=== PATIENT | male | born 1940 | race Caucasian/White ===

== ENCOUNTER 2017-10-20 15:38 | Inpatient (IN) ==
[2017-10-20] MEDS ORDERED: AMIODARONE INJ 150 MG in DEXTROSE 5% 100 ML IV ONE (16:35)
[2017-10-20] MEDS ORDERED: ENOXAPARIN 80 MG/0.8 ML SYRINGE SUBCUT STA (16:56)
[2017-10-20 17:20] LABS: Basophils % 0.5 % (0.0-0.8); Eosinophils # 0.4 10*3/uL (0.0-0.87); Eosinophils % 9.8 % (0.00-10.9); Hematocrit 38.5 VOL% (42.0-52.0); Hemoglobin 13.1 GM/DL (14.0-18.0); Lymphocytes # 3.1 10*3/uL (1.4-4.0); Lymphocytes % 81.7 % (21.2-54.2); Mean Corpuscular Hemoglobin 33 PG (27-34); Mean Corpuscular Volume 97.2 FL (87-102); Mean Platelet Volume 12.2 FL (9.6-12.0); Monocytes # 0.2 10*3/uL (0.11-0.8); Monocytes % 4.5 % (1.7-12.7); Neutrophils # 0.1 10*3/uL (1.4-7.4); Neutrophils % 3.5 % (38.7-73.9); Platelet Count 184 T/CUMM (130-400); Red Blood Count 3.96 MC/CUMM (3.8-5.5); Red Cell Distribution Width 13.5 % (9.3-17.3); White Blood Count 3.8 T/CUMM (4-12)
[2017-10-20 17:28] LABS: Partial Thromboplastin Time 25.7 SECS (0-40)
[2017-10-20 17:33] LABS: Alanine Aminotransferase 21 U/L (16-61); Albumin 3.3 G/DL (3.4-5.0); Alkaline Phosphatase 68 U/L (45-117); Aspartate Amino Transferase 19 U/L (0-37); Blood Urea Nitrogen 10 MG/DL (7-18); Calcium 8.8 MG/DL (8.5-10.1); Glucose 144 MG/DL (74-106); Osmolality,Calculated 276.7 MOS/KG (273-304); Potassium 3.5 MMOL/L (3.5-5.1); Sodium 138 MMOL/L (136-145); Total Protein 6.8 G/DL (6.4-8.3)
[2017-10-20 17:34] LABS: Troponin I Only 0.107 NG/ML (0.00-0.045)
[2017-10-20] MEDS ORDERED: AMIODARONE INJ 450 MG in DEXTROSE 5% 241 ML IV SCH ×2 (18:00→18:14)
[2017-10-20] MEDS ORDERED: GLUCAGON 1 MG VIAL IM PRN (18:14)
[2017-10-20] MEDS ORDERED: DEXTROSE 50% 25 GM/50 ML VIAL IV PRN (18:14)
[2017-10-20] MEDS ORDERED: MAGNESIUM SULF RIDER 4 GM in PREMIX 1 EACH IV PRN (18:14)
[2017-10-20] MEDS ORDERED: MAGNESIUM SULF RIDER 2 GM in PREMIX 1 EACH IV PRN (18:14)
[2017-10-20] MEDS ORDERED: ONDANSETRON 4 MG/2 ML VIAL IV PRN (18:14)
[2017-10-20 18:17] LABS: Lymphocytes 91 % (20-55); Platelet Estimate Normal; Segmented Neutrophils 6 % (50-85); Total Cells Counted 100
[2017-10-20] MEDS ORDERED: NITROGLYCERIN DRIP 50 MG/250 ML BOTTLE IV PRN (19:20)
[2017-10-20] MEDS ORDERED: FUROSEMIDE 40 MG/4 ML VIAL ONE (19:24)
[2017-10-20 19:59] LABS: Troponin I Only 0.104 NG/ML (0.00-0.045)
[2017-10-20] MEDS: MORPHINE 4 MG/1 ML VIAL IV PRN (20:03)
[2017-10-20 20:16] LABS: ABG Base Excess -12.7 MMOL/L (-2.5-2.5); ABG HCO3 16.6 MMOL/L (20-26); ABG Oxygen Saturation 94.6 % (95-100); ABG PCO2 51.3 MM HG (35-48); ABG PO2 101.3 MM HG (80-95); ABG TCO2 18.1 MMOL/L (23-27); Allen Test Positive; Pt O2 Delivery Device Other
[2017-10-20 20:20] LABS: ABG PH 7.127 (7.35-7.45)
[2017-10-20] MEDS ORDERED: SODIUM BICARBONATE 50 MEQ/50 ML SYRINGE IV ONE ×2 (20:22)
[2017-10-20] MEDS ORDERED: FUROSEMIDE 40 MG/4 ML VIAL IV SCH (21:30)
[2017-10-20 22:08] LABS: Troponin I Only 0.113 NG/ML (0.00-0.045)
[2017-10-20 23:15] LABS: Apearance,Urine CLOUDY (Clear); Bacteria,Urine Few /HPF (Few); Bilirubin,Urine Negative (Negative); Blood, Urine Large mg/dL (Negative); Glucose,Urine (UA) 50 mg/dL (Negative); Hyaline Casts,Urine 47 /LPF (0-3); Ketones,Urine Negative (Negative); Mucus,Urine Moderate /LPF (Occasional); Nitrite,Urine Negative (Negative); Protein,Urine 30 MG/DL; RBC,Urine 522 /HPF (0-4); Sperm,Urine Many /HPF (Negative); Urine Color Yellow (Yellow); Urine Specific Gravity 1.011 (1.001-1.035); Urine Urobilinogen < 2.0 EU/DL (0.2-1.0); WBC,Urine 11 /HPF (0-6)
[2017-10-20] MEDS ORDERED: NOREPINEPHRINE 8 MG in SODIUM CHLORIDE 0.9% 242 ML IV PRN (23:25)
[2017-10-20] MEDS ORDERED: NOREPINEPHRINE 4 MG/4 ML VIAL IV ONE (23:29)
[2017-10-20] MEDS: ALBUTEROL/IPRATROPIUM 3 ML NEB RESP TX SCH (23:57)
[2017-10-21 00:54] LABS: Troponin I Only 0.106 NG/ML (0.00-0.045)
[2017-10-21] MEDS: MORPHINE 4 MG/1 ML VIAL IV PRN (01:25)
[2017-10-21] MEDS: ALBUTEROL/IPRATROPIUM 3 ML NEB RESP TX SCH ×4 (03:04→20:27)
[2017-10-21 03:14] LABS: ABG Base Excess 4.4 MMOL/L (-2.5-2.5); ABG HCO3 28.3 MMOL/L (20-26); ABG PCO2 44.4 MM HG (35-48); ABG PH 7.428 (7.35-7.45); ABG PO2 76.6 MM HG (80-95); Allen Test Positive; Pt O2 Delivery Device BIPAP
[2017-10-21 03:21] LABS: Basophils % 0.3 % (0.0-0.8); Eosinophils % 0.2 % (0.00-10.9); Hemoglobin 11.6 GM/DL (14.0-18.0); Immature Granulocytes % 0.5 %; Immature Granulocytes Absolute 0.05 #; Lymphocytes # 1.8 10*3/uL (1.4-4.0); Lymphocytes % 17.4 % (21.2-54.2); Mean Corpuscular HGB Conc 34.1 GM/DL (32-36); Mean Corpuscular Hemoglobin 33 PG (27-34); Mean Corpuscular Volume 95.8 FL (87-102); Monocytes # 1.1 10*3/uL (0.11-0.8); Monocytes % 10.7 % (1.7-12.7); Neutrophils # 7.3 10*3/uL (1.4-7.4); Neutrophils % 70.9 % (38.7-73.9); Platelet Count 199 T/CUMM (130-400); Red Blood Count 3.55 MC/CUMM (3.8-5.5); Red Cell Distribution Width 13.4 % (9.3-17.3); White Blood Count 10.2 T/CUMM (4-12)
[2017-10-21 03:37] LABS: INR 1.1; PT Patient Result 11.2 SECS; Partial Thromboplastin Time 28.9 SECS (0-40)
[2017-10-21 03:47] LABS: Calcium 8.5 MG/DL (8.5-10.1); Osmolality,Calculated 281.4 MOS/KG (273-304); Potassium 3.7 MMOL/L (3.5-5.1)
[2017-10-21] MEDS: AMIODARONE INJ 450 MG in DEXTROSE 5% 241 ML IV SCH ×3 (04:27→23:10)
[2017-10-21] MEDS: FUROSEMIDE 40 MG/4 ML VIAL IV SCH ×4 (06:20→21:10)
[2017-10-21] MEDS: ENOXAPARIN 80 MG/0.8 ML SYRINGE SUBCUT SCH (06:24)
[2017-10-21] MEDS ORDERED: LORazepam 1 MG TABLET PO PRN (08:00)
[2017-10-21] MEDS ORDERED: ALBUTEROL 2.5 MG/3 ML NEB RESP TX PRN (08:00)
[2017-10-21] MEDS: metFORMIN 500 MG TABLET PO SCH ×2 (08:35→17:28)
[2017-10-21] MEDS ORDERED: LOSARTAN 25 MG TABLET PO SCH (09:00)
[2017-10-21] MEDS ORDERED: METOPROLOL TARTRATE 25 MG TABLET PO SCH (09:00)
[2017-10-21] MEDS ORDERED: PANTOPRAZOLE 40 MG TABLET PO SCH (09:00)
[2017-10-21] MEDS ORDERED: FUROSEMIDE 40 MG TABLET PO SCH (09:00)
[2017-10-21] MEDS: GLIMEPIRIDE 4 MG TABLET PO SCH (09:29)
[2017-10-21] MEDS: VENLAFAXINE 75 MG TABLET PO SCH (09:34)
[2017-10-21] MEDS: PANTOPRAZOLE 40 MG TABLET PO SCH (09:35)
[2017-10-21] MEDS: ASPIRIN EC 81 MG TABLET PO SCH (09:35)
[2017-10-21] MEDS: CLOPIDOGREL 75 MG TABLET PO SCH (09:35)
[2017-10-21] MEDS: ATORVASTATIN 40 MG TABLET PO SCH (09:35)
[2017-10-21] MEDS: CALCIUM (CARBONATE)/VITAMIN D 600 MG-400 UNIT TABLET PO SCH ×2 (09:35→21:10)
[2017-10-21] MEDS: DOBUTamine 500 MG/250 ML PREMIX IV PRN (10:29)
[2017-10-21] MEDS: INSULIN REGULAR 100 UNIT/ML SUBCUT SCH ×3 (11:53→21:10)
[2017-10-21] MEDS ORDERED: FUROSEMIDE 100 MG/10 ML VIAL ONE (21:01)
[2017-10-21] MEDS: MULTIVITAMIN (CENTRUM) TABLET PO SCH (21:11)
[2017-10-21] MEDS: ACETAMINOPHEN 325 MG TABLET PO PRN (21:11)
[2017-10-21] MEDS: ALPRAZolam 0.5 MG TABLET PO SCH (21:11)
[2017-10-21] MEDS: MIRTAZAPINE 15 MG TABLET PO SCH (21:11)
[2017-10-22] MEDS: DOBUTamine 500 MG/250 ML PREMIX IV PRN ×2 (00:01→12:56)
[2017-10-22] MEDS: ALBUTEROL/IPRATROPIUM 3 ML NEB RESP TX SCH ×8 (00:13→23:48)
[2017-10-22 05:29] LABS: Basophils % 0.5 % (0.0-0.8); Eosinophils # 0.1 10*3/uL (0.0-0.87); Eosinophils % 1.4 % (0.00-10.9); Hematocrit 32.2 VOL% (42.0-52.0); Hemoglobin 10.9 GM/DL (14.0-18.0); Immature Granulocytes % 0.2 %; Immature Granulocytes Absolute 0.02 #; Lymphocytes # 1.9 10*3/uL (1.4-4.0); Lymphocytes % 21.4 % (21.2-54.2); Mean Corpuscular HGB Conc 33.9 GM/DL (32-36); Mean Corpuscular Hemoglobin 33 PG (27-34); Mean Corpuscular Volume 96.1 FL (87-102); Mean Platelet Volume 12.6 FL (9.6-12.0); Monocytes % 11.7 % (1.7-12.7); Neutrophils # 5.6 10*3/uL (1.4-7.4); Neutrophils % 64.8 % (38.7-73.9); Platelet Count 146 T/CUMM (130-400); Red Blood Count 3.35 MC/CUMM (3.8-5.5); Red Cell Distribution Width 13.7 % (9.3-17.3); White Blood Count 8.7 T/CUMM (4-12)
[2017-10-22 05:56] LABS: Calcium 8.4 MG/DL (8.5-10.1); Osmolality,Calculated 284.1 MOS/KG (273-304)
[2017-10-22] MEDS ORDERED: FUROSEMIDE 100 MG/10 ML VIAL ONE (06:05)
[2017-10-22] MEDS: LEVOTHYROXINE 75 MCG TABLET PO SCH (06:09)
[2017-10-22] MEDS: FUROSEMIDE 40 MG/4 ML VIAL IV SCH ×3 (06:09→20:19)
[2017-10-22] MEDS: ENOXAPARIN 80 MG/0.8 ML SYRINGE SUBCUT SCH (06:09)
[2017-10-22] MEDS ORDERED: POTASSIUM CHLORIDE RIDER 20 MEQ in PREMIX 1 EACH IV PRN (07:36)
[2017-10-22] MEDS: INSULIN REGULAR 100 UNIT/ML SUBCUT SCH ×4 (09:21→20:49)
[2017-10-22] MEDS ORDERED: POTASSIUM CHLORIDE RIDER 10 MEQ in PREMIX 1 EACH IV PRN (09:39)
[2017-10-22] MEDS: metFORMIN 500 MG TABLET PO SCH ×2 (09:51→18:17)
[2017-10-22] MEDS: PANTOPRAZOLE 40 MG TABLET PO SCH (09:52)
[2017-10-22] MEDS: CLOPIDOGREL 75 MG TABLET PO SCH (09:52)
[2017-10-22] MEDS: CALCIUM (CARBONATE)/VITAMIN D 600 MG-400 UNIT TABLET PO SCH ×2 (09:52→20:19)
[2017-10-22] MEDS: ATORVASTATIN 40 MG TABLET PO SCH (09:52)
[2017-10-22] MEDS: SACUBITRIL/VALSARTAN 49-51 MG TABLET PO SCH ×2 (09:52→20:20)
[2017-10-22] MEDS: GLIMEPIRIDE 4 MG TABLET PO SCH (09:52)
[2017-10-22] MEDS: ASPIRIN EC 81 MG TABLET PO SCH (09:52)
[2017-10-22] MEDS: VENLAFAXINE 75 MG TABLET PO SCH (09:52)
[2017-10-22] MEDS: SPIRONOLACTONE 25 MG TABLET PO SCH (09:52)
[2017-10-22] MEDS: POTASSIUM CHLORIDE RIDER 20 MEQ in PREMIX 1 EACH IV PRN ×3 (10:19→21:29)
[2017-10-22] MEDS: METOPROLOL SUCCINATE XL 25 MG TABLET PO SCH (11:10)
[2017-10-22] MEDS: AMIODARONE INJ 450 MG in DEXTROSE 5% 241 ML IV SCH (13:56)
[2017-10-22] MEDS: ACETAMINOPHEN 325 MG TABLET PO PRN (14:51)
[2017-10-22] MEDS: AMIODARONE 200 MG TABLET PO SCH ×2 (16:36→20:19)
[2017-10-22] MEDS: ALPRAZolam 0.5 MG TABLET PO SCH (20:19)
[2017-10-22] MEDS: MULTIVITAMIN (CENTRUM) TABLET PO SCH (20:19)
[2017-10-22] MEDS: MIRTAZAPINE 15 MG TABLET PO SCH (20:21)
[2017-10-23] MEDS: DOBUTamine 500 MG/250 ML PREMIX IV PRN (02:09)
[2017-10-23] MEDS: ALBUTEROL/IPRATROPIUM 3 ML NEB RESP TX SCH ×6 (03:03→23:44)
[2017-10-23 05:12] LABS: Basophils % 0.5 % (0.0-0.8); Eosinophils # 0.2 10*3/uL (0.0-0.87); Eosinophils % 2.8 % (0.00-10.9); Hematocrit 31.8 VOL% (42.0-52.0); Hemoglobin 10.6 GM/DL (14.0-18.0); Immature Granulocytes Absolute 0.09 #; Lymphocytes # 1.9 10*3/uL (1.4-4.0); Lymphocytes % 22.5 % (21.2-54.2); Mean Corpuscular HGB Conc 33.3 GM/DL (32-36); Mean Corpuscular Hemoglobin 33 PG (27-34); Mean Corpuscular Volume 98.5 FL (87-102); Mean Platelet Volume 12.3 FL (9.6-12.0); Monocytes % 12.1 % (1.7-12.7); Neutrophils # 5.3 10*3/uL (1.4-7.4); Neutrophils % 61.1 % (38.7-73.9); Platelet Count 145 T/CUMM (130-400); Red Blood Count 3.23 MC/CUMM (3.8-5.5); Red Cell Distribution Width 13.9 % (9.3-17.3); White Blood Count 8.6 T/CUMM (4-12)
[2017-10-23 05:50] LABS: Calcium 8.7 MG/DL (8.5-10.1); Osmolality,Calculated 281.3 MOS/KG (273-304); Potassium 3.7 MMOL/L (3.5-5.1); Thyroid Stimulating Hormone 1.48 uIU/ml (0.358-3.74)
[2017-10-23] MEDS: LEVOTHYROXINE 75 MCG TABLET PO SCH (06:05)
[2017-10-23] MEDS: INSULIN REGULAR 100 UNIT/ML SUBCUT SCH ×4 (07:57→21:16)
[2017-10-23] MEDS: SACUBITRIL/VALSARTAN 49-51 MG TABLET PO SCH (08:04)
[2017-10-23] MEDS: FUROSEMIDE 40 MG/4 ML VIAL IV SCH (08:04)
[2017-10-23] MEDS: VENLAFAXINE 75 MG TABLET PO SCH (08:04)
[2017-10-23] MEDS: ATORVASTATIN 40 MG TABLET PO SCH (08:04)
[2017-10-23] MEDS: METOPROLOL SUCCINATE XL 25 MG TABLET PO SCH (08:04)
[2017-10-23] MEDS: AMIODARONE 200 MG TABLET PO SCH ×2 (08:05→21:10)
[2017-10-23] MEDS: CLOPIDOGREL 75 MG TABLET PO SCH (08:05)
[2017-10-23] MEDS: GLIMEPIRIDE 4 MG TABLET PO SCH (08:05)
[2017-10-23] MEDS: PANTOPRAZOLE 40 MG TABLET PO SCH (08:05)
[2017-10-23] MEDS: ASPIRIN EC 81 MG TABLET PO SCH (08:05)
[2017-10-23] MEDS: SPIRONOLACTONE 25 MG TABLET PO SCH (08:05)
[2017-10-23] MEDS: CALCIUM (CARBONATE)/VITAMIN D 600 MG-400 UNIT TABLET PO SCH ×2 (08:05→21:10)
[2017-10-23] MEDS: metFORMIN 500 MG TABLET PO SCH ×2 (08:05→17:12)
[2017-10-23] MEDS ORDERED: FUROSEMIDE 40 MG TABLET PO SCH (09:00)
[2017-10-23] MEDS: ENOXAPARIN 40 MG/0.4 ML SYRINGE SUBCUT SCH (10:18)
[2017-10-23] MEDS: MIRTAZAPINE 15 MG TABLET PO SCH (21:09)
[2017-10-23] MEDS: ALPRAZolam 0.5 MG TABLET PO SCH (21:10)
[2017-10-23] MEDS: MULTIVITAMIN (CENTRUM) TABLET PO SCH (21:10)
[2017-10-24] MEDS: ALBUTEROL/IPRATROPIUM 3 ML NEB RESP TX SCH ×5 (03:00→19:49)
[2017-10-24 05:31] LABS: Basophils % 0.4 % (0.0-0.8); Eosinophils # 0.2 10*3/uL (0.0-0.87); Eosinophils % 2.5 % (0.00-10.9); Hematocrit 33.4 VOL% (42.0-52.0); Hemoglobin 11.2 GM/DL (14.0-18.0); Immature Granulocytes % 0.4 %; Immature Granulocytes Absolute 0.04 #; Lymphocytes % 20.6 % (21.2-54.2); Mean Corpuscular HGB Conc 33.5 GM/DL (32-36); Mean Corpuscular Hemoglobin 33 PG (27-34); Mean Corpuscular Volume 96.8 FL (87-102); Mean Platelet Volume 12.1 FL (9.6-12.0); Monocytes % 10.2 % (1.7-12.7); Neutrophils # 6.2 10*3/uL (1.4-7.4); Neutrophils % 65.9 % (38.7-73.9); Platelet Count 155 T/CUMM (130-400); Red Blood Count 3.45 MC/CUMM (3.8-5.5); White Blood Count 9.5 T/CUMM (4-12)
[2017-10-24 06:00] LABS: Calcium 8.8 MG/DL (8.5-10.1); Osmolality,Calculated 277.5 MOS/KG (273-304)
[2017-10-24] MEDS: INSULIN REGULAR 100 UNIT/ML SUBCUT SCH ×4 (07:57→21:09)
[2017-10-24] MEDS: LEVOTHYROXINE 75 MCG TABLET PO SCH (07:58)
[2017-10-24] MEDS: ATORVASTATIN 40 MG TABLET PO SCH (08:52)
[2017-10-24] MEDS: SPIRONOLACTONE 25 MG TABLET PO SCH (08:52)
[2017-10-24] MEDS: CARVEDILOL 3.125 MG TABLET PO SCH ×2 (08:52→20:39)
[2017-10-24] MEDS: ENOXAPARIN 40 MG/0.4 ML SYRINGE SUBCUT SCH (08:52)
[2017-10-24] MEDS: SACUBITRIL/VALSARTAN 49-51 MG TABLET PO SCH ×2 (08:53→20:39)
[2017-10-24] MEDS: GLIMEPIRIDE 4 MG TABLET PO SCH (08:53)
[2017-10-24] MEDS: metFORMIN 500 MG TABLET PO SCH ×2 (08:53→18:14)
[2017-10-24] MEDS: VENLAFAXINE 75 MG TABLET PO SCH (08:53)
[2017-10-24] MEDS: ASPIRIN EC 81 MG TABLET PO SCH (08:53)
[2017-10-24] MEDS: CLOPIDOGREL 75 MG TABLET PO SCH (08:54)
[2017-10-24] MEDS: PANTOPRAZOLE 40 MG TABLET PO SCH (08:54)
[2017-10-24] MEDS: AMIODARONE 200 MG TABLET PO SCH ×2 (08:54→20:41)
[2017-10-24] MEDS: CALCIUM (CARBONATE)/VITAMIN D 600 MG-400 UNIT TABLET PO SCH ×2 (08:54→20:40)
[2017-10-24] MEDS ORDERED: FUROSEMIDE 40 MG TABLET PO SCH (09:00)
[2017-10-24] MEDS: FUROSEMIDE 40 MG TABLET PO SCH (16:34)
[2017-10-24] MEDS: MULTIVITAMIN (CENTRUM) TABLET PO SCH (20:40)
[2017-10-24] MEDS: MIRTAZAPINE 15 MG TABLET PO SCH (20:41)
[2017-10-24] MEDS: ALPRAZolam 0.5 MG TABLET PO SCH (20:42)
[2017-10-25] MEDS: ALBUTEROL/IPRATROPIUM 3 ML NEB RESP TX SCH ×7 (03:53→23:27)
[2017-10-25 05:44] LABS: Basophils % 0.3 % (0.0-0.8); Eosinophils # 0.2 10*3/uL (0.0-0.87); Immature Granulocytes % 0.4 %; Immature Granulocytes Absolute 0.05 #; Lymphocytes # 1.7 10*3/uL (1.4-4.0); Lymphocytes % 15.3 % (21.2-54.2); Mean Corpuscular HGB Conc 33.3 GM/DL (32-36); Mean Corpuscular Hemoglobin 33 PG (27-34); Mean Corpuscular Volume 97.7 FL (87-102); Monocytes # 1.2 10*3/uL (0.11-0.8); Monocytes % 10.6 % (1.7-12.7); Neutrophils % 71.4 % (38.7-73.9); Platelet Count 194 T/CUMM (130-400); Red Blood Count 3.99 MC/CUMM (3.8-5.5); Red Cell Distribution Width 13.7 % (9.3-17.3); White Blood Count 11.2 T/CUMM (4-12)
[2017-10-25 06:12] LABS: Calcium 9.3 MG/DL (8.5-10.1); Osmolality,Calculated 272.8 MOS/KG (273-304); Potassium 4.5 MMOL/L (3.5-5.1)
[2017-10-25 06:14] LABS: Hypochromasia 1+
[2017-10-25 06:15] LABS: Microcytosis 1+; Platelet Estimate Adequate
[2017-10-25] MEDS: LEVOTHYROXINE 75 MCG TABLET PO SCH (07:09)
[2017-10-25] MEDS: INSULIN REGULAR 100 UNIT/ML SUBCUT SCH ×4 (10:36→20:36)
[2017-10-25] MEDS: metFORMIN 500 MG TABLET PO SCH ×2 (10:42→16:39)
[2017-10-25] MEDS: FUROSEMIDE 40 MG TABLET PO SCH ×2 (10:42→16:37)
[2017-10-25] MEDS: SPIRONOLACTONE 25 MG TABLET PO SCH (10:43)
[2017-10-25] MEDS: CALCIUM (CARBONATE)/VITAMIN D 600 MG-400 UNIT TABLET PO SCH ×2 (10:43→21:05)
[2017-10-25] MEDS: GLIMEPIRIDE 4 MG TABLET PO SCH (10:43)
[2017-10-25] MEDS: ASPIRIN EC 81 MG TABLET PO SCH (10:43)
[2017-10-25] MEDS: SACUBITRIL/VALSARTAN 49-51 MG TABLET PO SCH ×2 (10:44→21:05)
[2017-10-25] MEDS: ATORVASTATIN 40 MG TABLET PO SCH (10:44)
[2017-10-25] MEDS: VENLAFAXINE 75 MG TABLET PO SCH (10:44)
[2017-10-25] MEDS: CARVEDILOL 3.125 MG TABLET PO SCH ×2 (10:44→21:05)
[2017-10-25] MEDS: AMIODARONE 200 MG TABLET PO SCH ×2 (10:44→21:05)
[2017-10-25] MEDS: MEMANTINE 5 MG TABLET PO SCH (10:45)
[2017-10-25] MEDS: ENOXAPARIN 40 MG/0.4 ML SYRINGE SUBCUT SCH (10:45)
[2017-10-25] MEDS: CLOPIDOGREL 75 MG TABLET PO SCH (10:45)
[2017-10-25] MEDS: PANTOPRAZOLE 40 MG TABLET PO SCH (10:45)
[2017-10-25] MEDS: MULTIVITAMIN (CENTRUM) TABLET PO SCH (21:05)
[2017-10-25] MEDS: ALPRAZolam 0.5 MG TABLET PO SCH (21:05)
[2017-10-25] MEDS: MIRTAZAPINE 15 MG TABLET PO SCH (21:06)
[2017-10-26] MEDS: ALBUTEROL/IPRATROPIUM 3 ML NEB RESP TX SCH ×2 (03:42→07:24)
[2017-10-26] MEDS: LEVOTHYROXINE 75 MCG TABLET PO SCH (06:29)
[2017-10-26 08:06] VITALS: BP 118/64
[2017-10-26] MEDS: INSULIN REGULAR 100 UNIT/ML SUBCUT SCH ×2 (08:10→11:51)
[2017-10-26] MEDS: ATORVASTATIN 40 MG TABLET PO SCH (09:11)
[2017-10-26] MEDS: CLOPIDOGREL 75 MG TABLET PO SCH (09:11)
[2017-10-26] MEDS: CARVEDILOL 3.125 MG TABLET PO SCH (09:11)
[2017-10-26] MEDS: VENLAFAXINE 75 MG TABLET PO SCH (09:11)
[2017-10-26] MEDS: MEMANTINE 5 MG TABLET PO SCH (09:11)
[2017-10-26] MEDS: CALCIUM (CARBONATE)/VITAMIN D 600 MG-400 UNIT TABLET PO SCH (09:11)
[2017-10-26] MEDS: ASPIRIN EC 81 MG TABLET PO SCH (09:11)
[2017-10-26] MEDS: PANTOPRAZOLE 40 MG TABLET PO SCH (09:11)
[2017-10-26] MEDS: FUROSEMIDE 40 MG TABLET PO SCH (09:12)
[2017-10-26] MEDS: metFORMIN 500 MG TABLET PO SCH (09:12)
[2017-10-26] MEDS: SPIRONOLACTONE 25 MG TABLET PO SCH (09:12)
[2017-10-26] MEDS: ENOXAPARIN 40 MG/0.4 ML SYRINGE SUBCUT SCH (09:12)
[2017-10-26] MEDS: SACUBITRIL/VALSARTAN 49-51 MG TABLET PO SCH (09:12)
[2017-10-26] MEDS: AMIODARONE 200 MG TABLET PO SCH (09:12)
[2017-10-26] MEDS: GLIMEPIRIDE 4 MG TABLET PO SCH (09:12)
== END 2017-10-26 11:55 | disposition swing bed (61) | DRG 291 ==
LOC: N.ED 15:38 → N.EDINP 17:09 → N.ICU 18:06 → N.TELES 10-24 22:16
PROVIDERS: ADMIT Internal Medicine Interventional Cardiology; ATTEND Internal Medicine Interventional Cardiology

== ENCOUNTER 2017-11-23 09:31 | Inpatient (IN) ==
[2017-11-23] MEDS ORDERED: ONDANSETRON 4 MG/2 ML VIAL IV PRN ×2 (10:57→15:18)
[2017-11-23] MEDS ORDERED: PANTOPRAZOLE 40 MG VIAL IV STA (10:57)
[2017-11-23] MEDS ORDERED: SODIUM CHLORIDE 0.9% 1,000 ML IV STA (10:57)
[2017-11-23 12:20] LABS: Basophils # 0.1 10*3/uL (0.0-0.2); Basophils % 0.8 % (0.0-0.8); Eosinophils # 0.1 10*3/uL (0.0-0.87); Eosinophils % 2.3 % (0.00-10.9); Hematocrit 35.5 VOL% (42.0-52.0); Hemoglobin 11.9 GM/DL (14.0-18.0); Immature Granulocytes % 0.3 %; Immature Granulocytes Absolute 0.02 #; Lymphocytes # 2.2 10*3/uL (1.4-4.0); Lymphocytes % 35.9 % (21.2-54.2); Mean Corpuscular HGB Conc 33.5 GM/DL (32-36); Mean Corpuscular Hemoglobin 32 PG (27-34); Mean Corpuscular Volume 95.9 FL (87-102); Mean Platelet Volume 12.3 FL (9.6-12.0); Monocytes # 0.7 10*3/uL (0.11-0.8); Monocytes % 10.9 % (1.7-12.7); Neutrophils % 49.8 % (38.7-73.9); Platelet Count 188 T/CUMM (130-400); Red Cell Distribution Width 14.6 % (9.3-17.3); White Blood Count 6.1 T/CUMM (4-12)
[2017-11-23 12:34] LABS: INR 1.1; PT Patient Result 11.1 SECS; Partial Thromboplastin Time 28.9 SECS (0-40)
[2017-11-23 12:37] LABS: Albumin 3.4 G/DL (3.4-5.0); Bilirubin,Total 0.4 MG/DL (0.2-1.0); Calcium 9.4 MG/DL (8.5-10.1); Osmolality,Calculated 279.7 MOS/KG (273-304); Potassium 4.3 MMOL/L (3.5-5.1); Total Protein 7.1 G/DL (6.4-8.3)
[2017-11-23] MEDS ORDERED: MORPHINE 4 MG/1 ML VIAL IV PRN (15:18)
[2017-11-23] MEDS ORDERED: ACETAMINOPHEN 325 MG TABLET PO PRN (15:18)
[2017-11-23] MEDS: SODIUM CHLORIDE 0.9% 1,000 ML IV SCH (17:12)
[2017-11-23 18:20] LABS: Hematocrit 33.9 VOL% (42.0-52.0); Hemoglobin 11.6 GM/DL (14.0-18.0)
[2017-11-23 22:34] LABS: Apearance,Urine CLEAR (Clear); Bilirubin,Urine Negative (Negative); Blood, Urine Negative (Negative); Glucose,Urine (UA) Negative (Negative); Ketones,Urine 5 mg/dL (Negative); Nitrite,Urine Negative (Negative); Protein,Urine Negative; RBC,Urine <1 /HPF (0-4); Urine Color Yellow (Yellow); Urine Specific Gravity 1.014 (1.001-1.035); Urine Urobilinogen < 2.0 EU/DL (0.2-1.0); WBC,Urine <1 /HPF (0-6)
[2017-11-23 23:23] LABS: Hematocrit 32.4 VOL% (42.0-52.0)
[2017-11-24] MEDS: SODIUM CHLORIDE 0.9% 1,000 ML IV SCH ×2 (02:10→10:34)
[2017-11-24 05:14] LABS: Basophils # 0.1 10*3/uL (0.0-0.2); Basophils % 0.8 % (0.0-0.8); Eosinophils # 0.2 10*3/uL (0.0-0.87); Eosinophils % 2.9 % (0.00-10.9); Hematocrit 34.4 VOL% (42.0-52.0); Hemoglobin 11.6 GM/DL (14.0-18.0); Immature Granulocytes % 0.3 %; Immature Granulocytes Absolute 0.02 #; Lymphocytes # 2.7 10*3/uL (1.4-4.0); Lymphocytes % 43.6 % (21.2-54.2); Mean Corpuscular HGB Conc 33.7 GM/DL (32-36); Mean Corpuscular Hemoglobin 32 PG (27-34); Mean Corpuscular Volume 93.7 FL (87-102); Mean Platelet Volume 12.8 FL (9.6-12.0); Monocytes # 0.7 10*3/uL (0.11-0.8); Monocytes % 11.8 % (1.7-12.7); Neutrophils # 2.5 10*3/uL (1.4-7.4); Neutrophils % 40.6 % (38.7-73.9); Platelet Count 179 T/CUMM (130-400); Red Blood Count 3.67 MC/CUMM (3.8-5.5); Red Cell Distribution Width 14.6 % (9.3-17.3); White Blood Count 6.2 T/CUMM (4-12)
[2017-11-24 05:23] LABS: Calcium 8.6 MG/DL (8.5-10.1); Osmolality,Calculated 285.1 MOS/KG (273-304); Potassium 4.4 MMOL/L (3.5-5.1)
[2017-11-24 07:34] LABS: Hematocrit 33.8 VOL% (42.0-52.0); Hemoglobin 11.4 GM/DL (14.0-18.0)
[2017-11-24] MEDS: PANTOPRAZOLE 40 MG VIAL IV SCH (09:23)
[2017-11-24] MEDS: ATORVASTATIN 40 MG TABLET PO SCH (10:30)
[2017-11-24] MEDS: CARVEDILOL 3.125 MG TABLET PO SCH ×2 (10:30→16:41)
[2017-11-24] MEDS: SACUBITRIL/VALSARTAN 49-51 MG TABLET PO SCH ×2 (10:30→20:45)
[2017-11-24] MEDS: FUROSEMIDE 40 MG TABLET PO SCH ×2 (10:30→16:41)
[2017-11-24] MEDS: SPIRONOLACTONE 25 MG TABLET PO SCH (10:30)
[2017-11-24] MEDS: AMIODARONE 200 MG TABLET PO SCH (10:30)
[2017-11-24] MEDS: MEMANTINE 5 MG TABLET PO SCH (10:30)
[2017-11-24] MEDS: MIRTAZAPINE 15 MG TABLET PO SCH (20:46)
[2017-11-25 04:34] LABS: Basophils % 0.5 % (0.0-0.8); Eosinophils # 0.2 10*3/uL (0.0-0.87); Eosinophils % 2.6 % (0.00-10.9); Hematocrit 32.6 VOL% (42.0-52.0); Hemoglobin 11.4 GM/DL (14.0-18.0); Immature Granulocytes % 0.2 %; Immature Granulocytes Absolute 0.01 #; Lymphocytes # 2.4 10*3/uL (1.4-4.0); Lymphocytes % 41.1 % (21.2-54.2); Mean Corpuscular Hemoglobin 32 PG (27-34); Mean Corpuscular Volume 91.8 FL (87-102); Mean Platelet Volume 12.7 FL (9.6-12.0); Monocytes # 0.6 10*3/uL (0.11-0.8); Neutrophils # 2.6 10*3/uL (1.4-7.4); Neutrophils % 44.6 % (38.7-73.9); Platelet Count 169 T/CUMM (130-400); Red Blood Count 3.55 MC/CUMM (3.8-5.5); Red Cell Distribution Width 14.6 % (9.3-17.3); White Blood Count 5.8 T/CUMM (4-12)
[2017-11-25 05:08] LABS: Calcium 8.4 MG/DL (8.5-10.1); Potassium 3.4 MMOL/L (3.5-5.1)
[2017-11-25] MEDS: LEVOTHYROXINE 75 MCG TABLET PO SCH (06:28)
[2017-11-25] MEDS: BISACODYL 5 MG TABLET PO SCH ×2 (06:28→16:28)
[2017-11-25] MEDS: POTASSIUM CHLORIDE 20 MEQ TABLET PO SCH ×3 (09:13→21:01)
[2017-11-25] MEDS: SACUBITRIL/VALSARTAN 49-51 MG TABLET PO SCH ×2 (09:13→21:01)
[2017-11-25] MEDS: SPIRONOLACTONE 25 MG TABLET PO SCH (09:13)
[2017-11-25] MEDS: CARVEDILOL 3.125 MG TABLET PO SCH ×2 (09:14→16:46)
[2017-11-25] MEDS: ATORVASTATIN 40 MG TABLET PO SCH (09:14)
[2017-11-25] MEDS: MEMANTINE 5 MG TABLET PO SCH (09:14)
[2017-11-25] MEDS: AMIODARONE 200 MG TABLET PO SCH (09:18)
[2017-11-25] MEDS: FUROSEMIDE 40 MG TABLET PO SCH ×2 (09:18→16:46)
[2017-11-25] MEDS: PANTOPRAZOLE 40 MG VIAL IV SCH (09:24)
[2017-11-25] MEDS ORDERED: POLYETHYLENE GLYCOL 3350/ELECTROLYTES 4,000 ML BOTTLE PO ONE (14:00)
[2017-11-25] MEDS ORDERED: POLYETHYLENE GLYCOL 3350/ELECTROLYTES 4,000 ML BOTTLE NG ONE (14:00)
[2017-11-25] MEDS ORDERED: MAGNESIUM CITRATE 300 ML BOTTLE PO ONE (21:00)
[2017-11-25] MEDS: MIRTAZAPINE 15 MG TABLET PO SCH (21:01)
[2017-11-26] MEDS: BISACODYL 5 MG TABLET PO SCH (03:22)
[2017-11-26 05:02] LABS: Basophils % 0.5 % (0.0-0.8); Eosinophils # 0.1 10*3/uL (0.0-0.87); Eosinophils % 1.7 % (0.00-10.9); Hematocrit 36.1 VOL% (42.0-52.0); Hemoglobin 12.3 GM/DL (14.0-18.0); Immature Granulocytes % 0.2 %; Immature Granulocytes Absolute 0.02 #; Lymphocytes # 3.1 10*3/uL (1.4-4.0); Lymphocytes % 37.2 % (21.2-54.2); Mean Corpuscular HGB Conc 34.1 GM/DL (32-36); Mean Corpuscular Hemoglobin 32 PG (27-34); Mean Platelet Volume 12.6 FL (9.6-12.0); Monocytes % 11.9 % (1.7-12.7); Neutrophils % 48.5 % (38.7-73.9); Platelet Count 196 T/CUMM (130-400); Red Blood Count 3.84 MC/CUMM (3.8-5.5); Red Cell Distribution Width 14.6 % (9.3-17.3); White Blood Count 8.3 T/CUMM (4-12)
[2017-11-26 05:33] LABS: Calcium 8.8 MG/DL (8.5-10.1)
[2017-11-26] MEDS: LEVOTHYROXINE 75 MCG TABLET PO SCH (06:47)
[2017-11-26] MEDS ORDERED: oxyCODONE/ACETAMINOPHEN 5-325 MG TABLET PO PRN (08:31)
[2017-11-26] MEDS ORDERED: LIDOCAINE 2% 5 ML VIAL ONE (09:00)
[2017-11-26] MEDS ORDERED: PROPOFOL 200 MG/20 ML VIAL IV ONE (09:00)
[2017-11-26] MEDS ORDERED: PHENYLEPHRINE 1 MG/10 ML SYRINGE IV ONE (09:00)
[2017-11-26] MEDS ORDERED: ETOMIDATE 20 MG/10 ML VIAL IV ONE (09:00)
[2017-11-26] MEDS: SACUBITRIL/VALSARTAN 49-51 MG TABLET PO SCH ×2 (09:47→21:13)
[2017-11-26] MEDS: MEMANTINE 5 MG TABLET PO SCH (09:47)
[2017-11-26] MEDS: FUROSEMIDE 40 MG TABLET PO SCH ×2 (09:48→16:00)
[2017-11-26] MEDS: ATORVASTATIN 40 MG TABLET PO SCH (09:48)
[2017-11-26] MEDS: SPIRONOLACTONE 25 MG TABLET PO SCH (09:48)
[2017-11-26] MEDS: CARVEDILOL 3.125 MG TABLET PO SCH ×2 (09:48→16:23)
[2017-11-26] MEDS: POLYETHYLENE GLYCOL POWDER 17 GM PACK PO SCH ×3 (09:48→21:13)
[2017-11-26] MEDS: AMIODARONE 200 MG TABLET PO SCH (09:48)
[2017-11-26] MEDS: PANTOPRAZOLE 40 MG VIAL IV SCH (09:48)
[2017-11-26] MEDS: DOCUSATE SODIUM 100 MG CAPSULE PO SCH ×2 (16:00→21:13)
[2017-11-26] MEDS: MIRTAZAPINE 15 MG TABLET PO SCH (21:13)
[2017-11-27 04:48] LABS: Basophils # 0.1 10*3/uL (0.0-0.2); Basophils % 0.6 % (0.0-0.8); Eosinophils # 0.2 10*3/uL (0.0-0.87); Eosinophils % 2.1 % (0.00-10.9); Hematocrit 34.6 VOL% (42.0-52.0); Hemoglobin 11.6 GM/DL (14.0-18.0); Immature Granulocytes % 0.4 %; Immature Granulocytes Absolute 0.03 #; Lymphocytes # 2.3 10*3/uL (1.4-4.0); Lymphocytes % 28.7 % (21.2-54.2); Mean Corpuscular HGB Conc 33.5 GM/DL (32-36); Mean Corpuscular Hemoglobin 32 PG (27-34); Mean Corpuscular Volume 96.1 FL (87-102); Mean Platelet Volume 12.3 FL (9.6-12.0); Monocytes # 0.7 10*3/uL (0.11-0.8); Neutrophils # 4.8 10*3/uL (1.4-7.4); Neutrophils % 59.2 % (38.7-73.9); Platelet Count 178 T/CUMM (130-400); Red Cell Distribution Width 14.6 % (9.3-17.3)
[2017-11-27] MEDS ORDERED: SODIUM CHLORIDE 0.9% 500 ML IV ONE (05:07)
[2017-11-27 05:14] LABS: Calcium 8.3 MG/DL (8.5-10.1); Osmolality,Calculated 283.1 MOS/KG (273-304); Potassium 3.6 MMOL/L (3.5-5.1)
[2017-11-27] MEDS: LEVOTHYROXINE 75 MCG TABLET PO SCH (06:07)
[2017-11-27 08:15] VITALS: BP 122/60
[2017-11-27] MEDS: SACUBITRIL/VALSARTAN 49-51 MG TABLET PO SCH (09:12)
[2017-11-27] MEDS: ATORVASTATIN 40 MG TABLET PO SCH (09:12)
[2017-11-27] MEDS: CARVEDILOL 3.125 MG TABLET PO SCH (09:12)
[2017-11-27] MEDS: MEMANTINE 5 MG TABLET PO SCH (09:13)
[2017-11-27] MEDS: SPIRONOLACTONE 25 MG TABLET PO SCH (09:13)
[2017-11-27] MEDS: DOCUSATE SODIUM 100 MG CAPSULE PO SCH (09:13)
[2017-11-27] MEDS: FUROSEMIDE 40 MG TABLET PO SCH (09:14)
[2017-11-27] MEDS: AMIODARONE 200 MG TABLET PO SCH (09:14)
[2017-11-27] MEDS: POLYETHYLENE GLYCOL POWDER 17 GM PACK PO SCH (09:14)
[2017-11-27] MEDS: PANTOPRAZOLE 40 MG VIAL IV SCH (09:15)
== END 2017-11-27 10:55 | disposition home or self-care (01) | DRG 348 ==
LOC: N.ED 09:31 → N.EDINP 13:05 → N.2W 15:59 → N.TELES 17:10
PROVIDERS: ADMIT Internal Medicine; ATTEND Internal Medicine
PROC: COLONBL (2017-11-26 09:05)

== ENCOUNTER 2018-06-02 11:57 | Inpatient (IN) ==
[2018-06-02 14:26] LABS: Basophils # 0.1 10*3/uL (0.0-0.2); Basophils % 0.7 % (0.0-0.8); Eosinophils # 0.2 10*3/uL (0.0-0.87); Eosinophils % 3.2 % (0.00-10.9); Hematocrit 31.3 VOL% (42.0-52.0); Hemoglobin 9.8 GM/DL (14.0-18.0); Immature Granulocytes % 0.3 %; Immature Granulocytes Absolute 0.02 #; Lymphocytes % 27.6 % (21.2-54.2); Mean Corpuscular HGB Conc 31.3 GM/DL (32-36); Mean Corpuscular Hemoglobin 29 PG (27-34); Mean Corpuscular Volume 92.3 FL (87-102); Mean Platelet Volume 12.2 FL (9.6-12.0); Monocytes # 0.6 10*3/uL (0.11-0.8); Monocytes % 8.2 % (1.7-12.7); Neutrophils # 4.3 10*3/uL (1.4-7.4); Platelet Count 219 T/CUMM (130-400); Red Blood Count 3.39 MC/CUMM (3.8-5.5); Red Cell Distribution Width 15.6 % (9.3-17.3); White Blood Count 7.1 T/CUMM (4-12)
[2018-06-02 14:32] LABS: PT Patient Result 10.5 SECS
[2018-06-02 15:23] LABS: Alanine Aminotransferase 21 U/L (16-61); Albumin 3.9 G/DL (3.4-5.0); Alkaline Phosphatase 72 U/L (45-117); Aspartate Amino Transferase 14 U/L (0-37); Blood Urea Nitrogen 30 MG/DL (7-18); Calcium 9.6 MG/DL (8.5-10.1); Glucose 118 MG/DL (74-106); Potassium 4.5 MMOL/L (3.5-5.1); Sodium 136 MMOL/L (136-145); Total Protein 7.9 G/DL (6.4-8.3); Troponin I < 0.015 NG/ML (0.00-0.045)
[2018-06-02] MEDS ORDERED: ONDANSETRON 4 MG/2 ML VIAL IV PRN (17:38)
[2018-06-02] MEDS ORDERED: ZALEPLON 5 MG CAPSULE PO PRN (17:38)
[2018-06-02] MEDS ORDERED: guaiFENesin/DM ER 600-30 MG TABLET PO PRN (17:38)
[2018-06-02] MEDS ORDERED: ACETAMINOPHEN 325 MG TABLET PO PRN ×2 (17:38→17:43)
[2018-06-02] MEDS ORDERED: ALBUTEROL 2.5 MG/3 ML NEB RESP TX PRN (17:43)
[2018-06-02] MEDS ORDERED: SODIUM CHLORIDE 0.9% 1,000 ML IV SCH (18:00)
[2018-06-02 18:57] LABS: Hematocrit 31.2 VOL% (42.0-52.0); Hemoglobin 9.9 GM/DL (14.0-18.0)
[2018-06-02] MEDS: MIRTAZAPINE 15 MG TABLET PO SCH (21:55)
[2018-06-02] MEDS: ALPRAZolam 0.5 MG TABLET PO SCH (21:56)
[2018-06-02] MEDS: SACUBITRIL/VALSARTAN 49-51 MG TABLET PO SCH (21:56)
[2018-06-02] MEDS: CALCIUM (CARBONATE)/VITAMIN D 600 MG-400 UNIT TABLET PO SCH (21:57)
[2018-06-02] MEDS: MULTIVITAMIN (OCUVITE) TABLET PO SCH (21:57)
[2018-06-02] MEDS: DOCUSATE SODIUM 100 MG CAPSULE PO SCH (21:57)
[2018-06-02] MEDS: CARVEDILOL 3.125 MG TABLET PO SCH (21:57)
[2018-06-02 23:33] LABS: Hematocrit 29.8 VOL% (42.0-52.0); Hemoglobin 9.6 GM/DL (14.0-18.0)
[2018-06-03 04:10] LABS: Basophils # 0.1 10*3/uL (0.0-0.2); Basophils % 0.8 % (0.0-0.8); Eosinophils # 0.3 10*3/uL (0.0-0.87); Eosinophils % 4.1 % (0.00-10.9); Hematocrit 27.9 VOL% (42.0-52.0); Hemoglobin 8.9 GM/DL (14.0-18.0); Immature Granulocytes % 0.3 %; Immature Granulocytes Absolute 0.02 #; Lymphocytes # 2.4 10*3/uL (1.4-4.0); Mean Corpuscular HGB Conc 31.9 GM/DL (32-36); Mean Corpuscular Hemoglobin 29 PG (27-34); Mean Corpuscular Volume 91.2 FL (87-102); Mean Platelet Volume 12.1 FL (9.6-12.0); Monocytes # 0.8 10*3/uL (0.11-0.8); Neutrophils # 2.9 10*3/uL (1.4-7.4); Neutrophils % 45.8 % (38.7-73.9); Platelet Count 189 T/CUMM (130-400); Red Blood Count 3.06 MC/CUMM (3.8-5.5); Red Cell Distribution Width 15.3 % (9.3-17.3); White Blood Count 6.4 T/CUMM (4-12)
[2018-06-03 04:42] LABS: Albumin 3.1 G/DL (3.4-5.0); Bilirubin,Total 0.7 MG/DL (0.2-1.0); Calcium 8.7 MG/DL (8.5-10.1); Osmolality,Calculated 284.4 MOS/KG (273-304); Potassium 3.6 MMOL/L (3.5-5.1); Total Protein 6.3 G/DL (6.4-8.3)
[2018-06-03] MEDS: LEVOTHYROXINE 88 MCG TABLET PO SCH (06:00)
[2018-06-03] MEDS ORDERED: CYANOCOBALAMIN 1000 MCG/1 ML VIAL IM SCH (09:00)
[2018-06-03] MEDS: metFORMIN 500 MG TABLET PO SCH ×3 (09:20→16:44)
[2018-06-03] MEDS: FUROSEMIDE 40 MG TABLET PO SCH ×2 (09:20→15:38)
[2018-06-03] MEDS: CALCIUM (CARBONATE)/VITAMIN D 600 MG-400 UNIT TABLET PO SCH ×2 (09:21→20:57)
[2018-06-03] MEDS: VENLAFAXINE XR 75 MG CAPSULE PO SCH (09:21)
[2018-06-03] MEDS: SACUBITRIL/VALSARTAN 49-51 MG TABLET PO SCH ×2 (09:21→20:58)
[2018-06-03] MEDS: GLIMEPIRIDE 4 MG TABLET PO SCH ×2 (09:21→09:24)
[2018-06-03] MEDS: PANTOPRAZOLE 40 MG TABLET PO SCH (09:24)
[2018-06-03] MEDS: DOCUSATE SODIUM 100 MG CAPSULE PO SCH ×2 (09:24→20:57)
[2018-06-03] MEDS: SPIRONOLACTONE 25 MG TABLET PO SCH (09:25)
[2018-06-03] MEDS: ATORVASTATIN 40 MG TABLET PO SCH (09:25)
[2018-06-03] MEDS: AMIODARONE 200 MG TABLET PO SCH (09:25)
[2018-06-03] MEDS: CARVEDILOL 3.125 MG TABLET PO SCH ×2 (09:25→20:58)
[2018-06-03] MEDS: MEMANTINE 5 MG TABLET PO SCH (09:25)
[2018-06-03 12:42] LABS: Hematocrit 30.3 VOL% (42.0-52.0); Hemoglobin 9.3 GM/DL (14.0-18.0)
[2018-06-03] MEDS: ALPRAZolam 0.5 MG TABLET PO SCH (20:57)
[2018-06-03] MEDS: MIRTAZAPINE 15 MG TABLET PO SCH (20:57)
[2018-06-03] MEDS: MULTIVITAMIN (OCUVITE) TABLET PO SCH (20:58)
[2018-06-04 05:09] LABS: Basophils % 0.5 % (0.0-0.8); Eosinophils # 0.2 10*3/uL (0.0-0.87); Eosinophils % 2.9 % (0.00-10.9); Hematocrit 27.8 VOL% (42.0-52.0); Hemoglobin 8.6 GM/DL (14.0-18.0); Immature Granulocytes % 0.3 %; Immature Granulocytes Absolute 0.02 #; Lymphocytes # 2.5 10*3/uL (1.4-4.0); Lymphocytes % 30.9 % (21.2-54.2); Mean Corpuscular HGB Conc 30.9 GM/DL (32-36); Mean Corpuscular Hemoglobin 29 PG (27-34); Mean Corpuscular Volume 92.4 FL (87-102); Mean Platelet Volume 12.8 FL (9.6-12.0); Monocytes # 0.9 10*3/uL (0.11-0.8); Monocytes % 10.7 % (1.7-12.7); Neutrophils # 4.3 10*3/uL (1.4-7.4); Neutrophils % 54.7 % (38.7-73.9); Red Blood Count 3.01 MC/CUMM (3.8-5.5); Red Cell Distribution Width 15.3 % (9.3-17.3); White Blood Count 7.9 T/CUMM (4-12)
[2018-06-04 05:32] LABS: Platelet Count 98 T/CUMM (130-400)
[2018-06-04 05:39] LABS: Bilirubin,Total 0.5 MG/DL (0.2-1.0); Osmolality,Calculated 281.5 MOS/KG (273-304); Potassium 3.7 MMOL/L (3.5-5.1); Total Protein 6.1 G/DL (6.4-8.3)
[2018-06-04] MEDS: LEVOTHYROXINE 88 MCG TABLET PO SCH (06:07)
[2018-06-04] MEDS: FUROSEMIDE 40 MG TABLET PO SCH ×2 (08:31→16:31)
[2018-06-04] MEDS: SPIRONOLACTONE 25 MG TABLET PO SCH (08:31)
[2018-06-04] MEDS: SACUBITRIL/VALSARTAN 49-51 MG TABLET PO SCH ×2 (08:31→21:08)
[2018-06-04] MEDS: GLIMEPIRIDE 4 MG TABLET PO SCH (08:31)
[2018-06-04] MEDS: CALCIUM (CARBONATE)/VITAMIN D 600 MG-400 UNIT TABLET PO SCH ×2 (08:31→21:08)
[2018-06-04] MEDS: metFORMIN 500 MG TABLET PO SCH ×2 (08:31→16:31)
[2018-06-04] MEDS: VENLAFAXINE XR 75 MG CAPSULE PO SCH (08:31)
[2018-06-04] MEDS: MEMANTINE 5 MG TABLET PO SCH (08:31)
[2018-06-04] MEDS: ATORVASTATIN 40 MG TABLET PO SCH (08:32)
[2018-06-04] MEDS: PANTOPRAZOLE 40 MG TABLET PO SCH (08:32)
[2018-06-04] MEDS: AMIODARONE 200 MG TABLET PO SCH (08:32)
[2018-06-04] MEDS: CARVEDILOL 3.125 MG TABLET PO SCH ×2 (08:32→21:08)
[2018-06-04] MEDS: DOCUSATE SODIUM 100 MG CAPSULE PO SCH ×2 (08:32→21:08)
[2018-06-04] MEDS: MIRTAZAPINE 15 MG TABLET PO SCH (21:09)
[2018-06-04] MEDS: ALPRAZolam 0.5 MG TABLET PO SCH (21:09)
[2018-06-04] MEDS: MULTIVITAMIN (OCUVITE) TABLET PO SCH (21:09)
[2018-06-05 04:58] LABS: Calcium 9.1 MG/DL (8.5-10.1); Osmolality,Calculated 287.3 MOS/KG (273-304); Potassium 3.8 MMOL/L (3.5-5.1)
[2018-06-05 05:01] LABS: Bilirubin,Total 0.4 MG/DL (0.2-1.0); Calcium 9.2 MG/DL (8.5-10.1); Osmolality,Calculated 285.4 MOS/KG (273-304); Potassium 3.7 MMOL/L (3.5-5.1); Total Protein 6.6 G/DL (6.4-8.3)
[2018-06-05 05:25] LABS: Basophils % 0.4 % (0.0-0.8); Eosinophils # 0.3 10*3/uL (0.0-0.87); Eosinophils % 3.3 % (0.00-10.9); Hematocrit 28.4 VOL% (42.0-52.0); Hemoglobin 8.9 GM/DL (14.0-18.0); Immature Granulocytes % 0.4 %; Immature Granulocytes Absolute 0.03 #; Lymphocytes # 2.5 10*3/uL (1.4-4.0); Mean Corpuscular HGB Conc 31.3 GM/DL (32-36); Mean Corpuscular Hemoglobin 29 PG (27-34); Mean Corpuscular Volume 91.6 FL (87-102); Mean Platelet Volume 12.7 FL (9.6-12.0); Monocytes # 0.9 10*3/uL (0.11-0.8); Monocytes % 10.8 % (1.7-12.7); Neutrophils # 4.2 10*3/uL (1.4-7.4); Neutrophils % 53.1 % (38.7-73.9); Platelet Count 195 T/CUMM (130-400); Red Cell Distribution Width 15.3 % (9.3-17.3); White Blood Count 7.9 T/CUMM (4-12)
[2018-06-05] MEDS ORDERED: LIDOCAINE 2% 5 ML VIAL ONE (08:00)
[2018-06-05] MEDS ORDERED: PHENYLEPHRINE 1 MG/10 ML SYRINGE IV ONE (08:00)
[2018-06-05] MEDS ORDERED: PROPOFOL 200 MG/20 ML VIAL IV ONE (08:00)
[2018-06-05] MEDS ORDERED: MAGNESIUM CITRATE 300 ML BOTTLE PO ONE ×2 (10:36→18:30)
[2018-06-05] MEDS: CALCIUM (CARBONATE)/VITAMIN D 600 MG-400 UNIT TABLET PO SCH ×2 (11:52→22:45)
[2018-06-05] MEDS: VENLAFAXINE XR 75 MG CAPSULE PO SCH (11:52)
[2018-06-05] MEDS: LEVOTHYROXINE 88 MCG TABLET PO SCH (11:52)
[2018-06-05] MEDS: CARVEDILOL 3.125 MG TABLET PO SCH ×2 (11:52→22:42)
[2018-06-05] MEDS: FUROSEMIDE 40 MG TABLET PO SCH ×2 (11:52→16:50)
[2018-06-05] MEDS: DOCUSATE SODIUM 100 MG CAPSULE PO SCH ×2 (11:52→22:51)
[2018-06-05] MEDS: MEMANTINE 5 MG TABLET PO SCH (11:53)
[2018-06-05] MEDS: ATORVASTATIN 40 MG TABLET PO SCH (11:53)
[2018-06-05] MEDS: SPIRONOLACTONE 25 MG TABLET PO SCH (11:53)
[2018-06-05] MEDS: AMIODARONE 200 MG TABLET PO SCH (11:53)
[2018-06-05] MEDS: SACUBITRIL/VALSARTAN 49-51 MG TABLET PO SCH ×2 (11:53→22:47)
[2018-06-05] MEDS: PANTOPRAZOLE 40 MG TABLET PO SCH (11:53)
[2018-06-05] MEDS: metFORMIN 500 MG TABLET PO SCH ×2 (12:32→16:50)
[2018-06-05] MEDS: GLIMEPIRIDE 4 MG TABLET PO SCH (12:32)
[2018-06-05] MEDS: MIRTAZAPINE 15 MG TABLET PO SCH (22:43)
[2018-06-05] MEDS: ALPRAZolam 0.5 MG TABLET PO SCH (22:44)
[2018-06-05] MEDS: MULTIVITAMIN (OCUVITE) TABLET PO SCH (22:45)
[2018-06-06 05:13] LABS: Basophils % 0.4 % (0.0-0.8); Eosinophils # 0.1 10*3/uL (0.0-0.87); Eosinophils % 1.7 % (0.00-10.9); Hematocrit 30.1 VOL% (42.0-52.0); Hemoglobin 9.3 GM/DL (14.0-18.0); Immature Granulocytes % 0.3 %; Immature Granulocytes Absolute 0.02 #; Lymphocytes % 26.3 % (21.2-54.2); Mean Corpuscular HGB Conc 30.9 GM/DL (32-36); Mean Corpuscular Hemoglobin 29 PG (27-34); Mean Corpuscular Volume 93.8 FL (87-102); Mean Platelet Volume 12.6 FL (9.6-12.0); Monocytes # 0.7 10*3/uL (0.11-0.8); Monocytes % 8.5 % (1.7-12.7); Neutrophils # 4.8 10*3/uL (1.4-7.4); Neutrophils % 62.8 % (38.7-73.9); Platelet Count 215 T/CUMM (130-400); Red Blood Count 3.21 MC/CUMM (3.8-5.5); Red Cell Distribution Width 15.5 % (9.3-17.3); White Blood Count 7.6 T/CUMM (4-12)
[2018-06-06 05:37] LABS: Calcium 9.6 MG/DL (8.5-10.1); Osmolality,Calculated 283.5 MOS/KG (273-304); Potassium 4.5 MMOL/L (3.5-5.1)
[2018-06-06 05:50] LABS: Albumin 3.3 G/DL (3.4-5.0); Bilirubin,Total 0.7 MG/DL (0.2-1.0); Calcium 9.6 MG/DL (8.5-10.1); Osmolality,Calculated 284.5 MOS/KG (273-304); Potassium 4.4 MMOL/L (3.5-5.1); Total Protein 6.9 G/DL (6.4-8.3)
[2018-06-06] MEDS: CALCIUM (CARBONATE)/VITAMIN D 600 MG-400 UNIT TABLET PO SCH ×2 (11:12→20:51)
[2018-06-06] MEDS: ATORVASTATIN 40 MG TABLET PO SCH (11:13)
[2018-06-06] MEDS: SACUBITRIL/VALSARTAN 49-51 MG TABLET PO SCH ×2 (11:13→20:50)
[2018-06-06] MEDS: LEVOTHYROXINE 88 MCG TABLET PO SCH (11:13)
[2018-06-06] MEDS: FUROSEMIDE 40 MG TABLET PO SCH ×2 (11:13→17:51)
[2018-06-06] MEDS: metFORMIN 500 MG TABLET PO SCH ×2 (11:13→17:51)
[2018-06-06] MEDS: AMIODARONE 200 MG TABLET PO SCH (11:13)
[2018-06-06] MEDS: SPIRONOLACTONE 25 MG TABLET PO SCH (11:14)
[2018-06-06] MEDS: VENLAFAXINE XR 75 MG CAPSULE PO SCH (11:14)
[2018-06-06] MEDS: CARVEDILOL 3.125 MG TABLET PO SCH ×2 (11:14→20:51)
[2018-06-06] MEDS: PANTOPRAZOLE 40 MG TABLET PO SCH (11:14)
[2018-06-06] MEDS: DOCUSATE SODIUM 100 MG CAPSULE PO SCH ×2 (11:14→20:51)
[2018-06-06] MEDS: MEMANTINE 5 MG TABLET PO SCH (11:14)
[2018-06-06] MEDS: GLIMEPIRIDE 4 MG TABLET PO SCH (11:14)
[2018-06-06] MEDS: ALPRAZolam 0.5 MG TABLET PO SCH (20:50)
[2018-06-06] MEDS: MULTIVITAMIN (OCUVITE) TABLET PO SCH (20:50)
[2018-06-06] MEDS: MIRTAZAPINE 15 MG TABLET PO SCH (20:51)
[2018-06-07 05:29] LABS: Basophils % 0.4 % (0.0-0.8); Eosinophils # 0.4 10*3/uL (0.0-0.87); Eosinophils % 5.2 % (0.00-10.9); Hematocrit 28.4 VOL% (42.0-52.0); Hemoglobin 8.8 GM/DL (14.0-18.0); Immature Granulocytes % 0.4 %; Immature Granulocytes Absolute 0.03 #; Lymphocytes % 38.4 % (21.2-54.2); Mean Corpuscular Hemoglobin 29 PG (27-34); Mean Corpuscular Volume 92.2 FL (87-102); Mean Platelet Volume 13.2 FL (9.6-12.0); Monocytes # 0.9 10*3/uL (0.11-0.8); Monocytes % 11.5 % (1.7-12.7); Neutrophils # 3.5 10*3/uL (1.4-7.4); Neutrophils % 44.1 % (38.7-73.9); Platelet Count 178 T/CUMM (130-400); Red Blood Count 3.08 MC/CUMM (3.8-5.5); Red Cell Distribution Width 15.6 % (9.3-17.3); White Blood Count 7.9 T/CUMM (4-12)
[2018-06-07] MEDS: LEVOTHYROXINE 88 MCG TABLET PO SCH (05:48)
[2018-06-07 05:50] LABS: Calcium 9.1 MG/DL (8.5-10.1); Osmolality,Calculated 279.7 MOS/KG (273-304); Potassium 4.3 MMOL/L (3.5-5.1)
[2018-06-07] MEDS: CALCIUM (CARBONATE)/VITAMIN D 600 MG-400 UNIT TABLET PO SCH (09:12)
[2018-06-07] MEDS: metFORMIN 500 MG TABLET PO SCH (09:12)
[2018-06-07] MEDS: FUROSEMIDE 40 MG TABLET PO SCH (09:12)
[2018-06-07] MEDS: VENLAFAXINE XR 75 MG CAPSULE PO SCH (09:12)
[2018-06-07] MEDS: PANTOPRAZOLE 40 MG TABLET PO SCH (09:12)
[2018-06-07] MEDS: SACUBITRIL/VALSARTAN 49-51 MG TABLET PO SCH (09:13)
[2018-06-07] MEDS: ATORVASTATIN 40 MG TABLET PO SCH (09:13)
[2018-06-07] MEDS: MEMANTINE 5 MG TABLET PO SCH (09:13)
[2018-06-07] MEDS: SPIRONOLACTONE 25 MG TABLET PO SCH (09:13)
[2018-06-07] MEDS: AMIODARONE 200 MG TABLET PO SCH (09:13)
[2018-06-07] MEDS: GLIMEPIRIDE 4 MG TABLET PO SCH (09:13)
[2018-06-07] MEDS: DOCUSATE SODIUM 100 MG CAPSULE PO SCH (09:21)
[2018-06-07] MEDS: CARVEDILOL 3.125 MG TABLET PO SCH (09:21)
[2018-06-07 12:34] VITALS: BP 107/56
== END 2018-06-07 14:25 | disposition home health service (06) | DRG 377 ==
LOC: N.ED 11:57 → N.EDINP 17:38 → N.TELEN 18:12 → N.4E 06-06 15:29
PROVIDERS: ADMIT Internal Medicine; ATTEND Internal Medicine

== ENCOUNTER 2018-06-24 12:23 | Inpatient (IN) ==
[2018-06-24] MEDS ORDERED: PANTOPRAZOLE 40 MG VIAL IV STA (13:21)
[2018-06-24] MEDS ORDERED: ONDANSETRON 4 MG/2 ML VIAL IV STA (13:21)
[2018-06-24] MEDS ORDERED: SODIUM CHLORIDE 0.9% 500 ML IV STA (13:21)
[2018-06-24 13:34] LABS: Basophils # 0.1 10*3/uL (0.0-0.2); Basophils % 0.7 % (0.0-0.8); Eosinophils # 0.3 10*3/uL (0.0-0.87); Eosinophils % 3.4 % (0.00-10.9); Hematocrit 26.6 VOL% (42.0-52.0); Hemoglobin 8.3 GM/DL (14.0-18.0); Immature Granulocytes % 0.1 %; Immature Granulocytes Absolute 0.01 #; Lymphocytes % 26.5 % (21.2-54.2); Mean Corpuscular HGB Conc 31.2 GM/DL (32-36); Mean Corpuscular Hemoglobin 29 PG (27-34); Mean Corpuscular Volume 91.7 FL (87-102); Mean Platelet Volume 12.2 FL (9.6-12.0); Monocytes # 0.7 10*3/uL (0.11-0.8); Monocytes % 8.7 % (1.7-12.7); Neutrophils # 4.5 10*3/uL (1.4-7.4); Neutrophils % 60.6 % (38.7-73.9); Platelet Count 193 T/CUMM (130-400); Red Cell Distribution Width 15.7 % (9.3-17.3); White Blood Count 7.5 T/CUMM (4-12)
[2018-06-24 13:43] LABS: PT Patient Result 10.6 SECS
[2018-06-24 13:59] LABS: Alanine Aminotransferase 16 U/L (16-61); Albumin 3.5 G/DL (3.4-5.0); Alkaline Phosphatase 63 U/L (45-117); Aspartate Amino Transferase 9 U/L (0-37); Bilirubin,Total < 0.39 MG/DL (0.2-1.0); Blood Urea Nitrogen 34 MG/DL (7-18); Calcium 8.5 MG/DL (8.5-10.1); Glucose 173 MG/DL (74-106); Osmolality,Calculated 290.4 MOS/KG (273-304); Potassium 4.4 MMOL/L (3.5-5.1); Sodium 140 MMOL/L (136-145); Total Protein 6.5 G/DL (6.4-8.3)
[2018-06-24] MEDS ORDERED: ACETAMINOPHEN 325 MG TABLET PO PRN (18:40)
[2018-06-24] MEDS ORDERED: DEXTROSE 50% 25 GM/50 ML VIAL IV PRN (18:40)
[2018-06-24] MEDS ORDERED: GLUCAGON 1 MG VIAL IM PRN (18:40)
[2018-06-24] MEDS ORDERED: ONDANSETRON 4 MG/2 ML VIAL IV PRN (18:40)
[2018-06-24] MEDS: INSULIN LISPRO 100 UNIT/ML SUBCUT SCH (19:27)
[2018-06-24 20:15] LABS: Hematocrit 26.7 VOL% (42.0-52.0); Hemoglobin 8.2 GM/DL (14.0-18.0)
[2018-06-24] MEDS: cephALEXin 500 MG CAPSULE PO SCH (22:09)
[2018-06-24] MEDS: MIRTAZAPINE 15 MG TABLET PO SCH (22:09)
[2018-06-24] MEDS: PANTOPRAZOLE 40 MG VIAL IV SCH (22:09)
[2018-06-24] MEDS: CARVEDILOL 3.125 MG TABLET PO SCH (22:09)
[2018-06-24] MEDS: ALPRAZolam 0.5 MG TABLET PO SCH (23:13)
[2018-06-25 01:11] LABS: Hematocrit 24.1 VOL% (42.0-52.0); Hemoglobin 7.6 GM/DL (14.0-18.0)
[2018-06-25 01:36] LABS: Albumin 2.9 G/DL (3.4-5.0); Bilirubin,Total 0.6 MG/DL (0.2-1.0); Calcium 8.1 MG/DL (8.5-10.1); Osmolality,Calculated 291.1 MOS/KG (273-304); Potassium 3.8 MMOL/L (3.5-5.1); Total Protein 6.2 G/DL (6.4-8.3)
[2018-06-25] MEDS: INSULIN LISPRO 100 UNIT/ML SUBCUT SCH ×4 (03:51→17:02)
[2018-06-25 06:13] LABS: Basophils # 0.1 10*3/uL (0.0-0.2); Basophils % 0.9 % (0.0-0.8); Eosinophils # 0.3 10*3/uL (0.0-0.87); Eosinophils % 5.7 % (0.00-10.9); Hematocrit 24.9 VOL% (42.0-52.0); Hemoglobin 7.8 GM/DL (14.0-18.0); Immature Granulocytes % 0.2 %; Immature Granulocytes Absolute 0.01 #; Lymphocytes # 2.6 10*3/uL (1.4-4.0); Lymphocytes % 47.4 % (21.2-54.2); Mean Corpuscular HGB Conc 31.3 GM/DL (32-36); Mean Corpuscular Hemoglobin 29 PG (27-34); Mean Corpuscular Volume 91.5 FL (87-102); Mean Platelet Volume 12.3 FL (9.6-12.0); Monocytes # 0.6 10*3/uL (0.11-0.8); Monocytes % 11.7 % (1.7-12.7); Neutrophils # 1.9 10*3/uL (1.4-7.4); Neutrophils % 34.1 % (38.7-73.9); Platelet Count 174 T/CUMM (130-400); Red Blood Count 2.72 MC/CUMM (3.8-5.5); Red Cell Distribution Width 15.8 % (9.3-17.3); White Blood Count 5.5 T/CUMM (4-12)
[2018-06-25 07:21] LABS: Eosinophils 9 % (0-10); Hypochromasia 1+; Lymphocytes 41 % (20-55); Ovalocytes Slight; Platelet Estimate Adequate; Segmented Neutrophils 41 % (50-85); Total Cells Counted 100
[2018-06-25] MEDS ORDERED: SODIUM CHLORIDE 0.9% 1,000 ML IV PRN (08:27)
[2018-06-25] MEDS: LEVOTHYROXINE 88 MCG TABLET PO SCH (08:28)
[2018-06-25] MEDS ORDERED: FUROSEMIDE 40 MG/4 ML VIAL IV ONE (08:29)
[2018-06-25] MEDS: ATORVASTATIN 40 MG TABLET PO SCH (10:36)
[2018-06-25] MEDS: cephALEXin 500 MG CAPSULE PO SCH ×2 (10:36→21:05)
[2018-06-25] MEDS: AMIODARONE 200 MG TABLET PO SCH (10:36)
[2018-06-25] MEDS: CARVEDILOL 3.125 MG TABLET PO SCH ×2 (10:36→21:05)
[2018-06-25] MEDS: MEMANTINE 5 MG TABLET PO SCH (10:37)
[2018-06-25 12:47] LABS: Hematocrit 30.4 VOL% (42.0-52.0); Hemoglobin 9.3 GM/DL (14.0-18.0)
[2018-06-25] MEDS: PANTOPRAZOLE 40 MG VIAL IV SCH ×2 (14:31→21:05)
[2018-06-25] MEDS: ALPRAZolam 0.5 MG TABLET PO SCH (21:04)
[2018-06-25] MEDS: MIRTAZAPINE 15 MG TABLET PO SCH (21:05)
[2018-06-25 21:42] LABS: Hematocrit 25.5 VOL% (42.0-52.0); Hemoglobin 7.9 GM/DL (14.0-18.0)
[2018-06-26] MEDS: INSULIN LISPRO 100 UNIT/ML SUBCUT SCH ×5 (00:29→23:51)
[2018-06-26 05:42] LABS: Basophils % 0.6 % (0.0-0.8); Eosinophils # 0.4 10*3/uL (0.0-0.87); Eosinophils % 5.5 % (0.00-10.9); Hematocrit 30.1 VOL% (42.0-52.0); Hemoglobin 8.9 GM/DL (14.0-18.0); Immature Granulocytes % 0.1 %; Immature Granulocytes Absolute 0.01 #; Lymphocytes # 2.5 10*3/uL (1.4-4.0); Lymphocytes % 36.6 % (21.2-54.2); Mean Corpuscular HGB Conc 29.6 GM/DL (32-36); Mean Corpuscular Hemoglobin 28 PG (27-34); Mean Platelet Volume 12.7 FL (9.6-12.0); Monocytes # 0.9 10*3/uL (0.11-0.8); Monocytes % 12.7 % (1.7-12.7); Neutrophils # 3.1 10*3/uL (1.4-7.4); Neutrophils % 44.5 % (38.7-73.9); Platelet Count 181 T/CUMM (130-400); Red Blood Count 3.17 MC/CUMM (3.8-5.5); Red Cell Distribution Width 15.8 % (9.3-17.3); White Blood Count 6.9 T/CUMM (4-12)
[2018-06-26 06:10] LABS: Calcium 8.8 MG/DL (8.5-10.1); Osmolality,Calculated 281.4 MOS/KG (273-304); Potassium 3.8 MMOL/L (3.5-5.1)
[2018-06-26 06:36] LABS: Eosinophils 7 % (0-10); Hypochromasia 1+; Lymphocytes 40 % (20-55); Ovalocytes Slight; Platelet Estimate Adequate; Segmented Neutrophils 46 % (50-85); Total Cells Counted 100
[2018-06-26] MEDS ORDERED: FUROSEMIDE 40 MG/4 ML VIAL ONE (07:36)
[2018-06-26] MEDS: LEVOTHYROXINE 88 MCG TABLET PO SCH (07:40)
[2018-06-26] MEDS: cephALEXin 500 MG CAPSULE PO SCH ×2 (09:08→21:21)
[2018-06-26] MEDS: PANTOPRAZOLE 40 MG VIAL IV SCH ×2 (09:09→21:22)
[2018-06-26] MEDS: CARVEDILOL 3.125 MG TABLET PO SCH ×2 (09:09→21:22)
[2018-06-26] MEDS: ATORVASTATIN 40 MG TABLET PO SCH (09:09)
[2018-06-26] MEDS: AMIODARONE 200 MG TABLET PO SCH (09:09)
[2018-06-26] MEDS: MEMANTINE 5 MG TABLET PO SCH (09:09)
[2018-06-26] MEDS: ALPRAZolam 0.5 MG TABLET PO SCH (21:21)
[2018-06-26] MEDS: MIRTAZAPINE 15 MG TABLET PO SCH (21:22)
[2018-06-26 23:24] LABS: Hematocrit 27.2 VOL% (42.0-52.0); Hemoglobin 8.5 GM/DL (14.0-18.0)
[2018-06-27] MEDS: LEVOTHYROXINE 88 MCG TABLET PO SCH (06:29)
[2018-06-27] MEDS: INSULIN LISPRO 100 UNIT/ML SUBCUT SCH ×2 (06:34→12:43)
[2018-06-27 07:59] LABS: Basophils % 0.6 % (0.0-0.8); Eosinophils # 0.3 10*3/uL (0.0-0.87); Eosinophils % 4.6 % (0.00-10.9); Hematocrit 27.9 VOL% (42.0-52.0); Hemoglobin 8.7 GM/DL (14.0-18.0); Immature Granulocytes % 0.1 %; Immature Granulocytes Absolute 0.01 #; Lymphocytes # 2.3 10*3/uL (1.4-4.0); Lymphocytes % 33.2 % (21.2-54.2); Mean Corpuscular HGB Conc 31.2 GM/DL (32-36); Mean Corpuscular Hemoglobin 28 PG (27-34); Mean Corpuscular Volume 91.2 FL (87-102); Mean Platelet Volume 11.9 FL (9.6-12.0); Monocytes # 0.8 10*3/uL (0.11-0.8); Monocytes % 11.4 % (1.7-12.7); Neutrophils # 3.5 10*3/uL (1.4-7.4); Neutrophils % 50.1 % (38.7-73.9); Platelet Count 177 T/CUMM (130-400); Red Blood Count 3.06 MC/CUMM (3.8-5.5); Red Cell Distribution Width 15.9 % (9.3-17.3); White Blood Count 6.9 T/CUMM (4-12)
[2018-06-27] MEDS: MEMANTINE 5 MG TABLET PO SCH (09:31)
[2018-06-27] MEDS: ATORVASTATIN 40 MG TABLET PO SCH (09:31)
[2018-06-27] MEDS: AMIODARONE 200 MG TABLET PO SCH (09:31)
[2018-06-27] MEDS: cephALEXin 500 MG CAPSULE PO SCH (09:31)
[2018-06-27] MEDS: CARVEDILOL 3.125 MG TABLET PO SCH (09:31)
[2018-06-27] MEDS: PANTOPRAZOLE 40 MG VIAL IV SCH (09:32)
[2018-06-27 12:39] VITALS: BP 122/65
== END 2018-06-27 13:27 | disposition home or self-care (01) | DRG 378 ==
LOC: N.ED 12:23 → SUATTDRO 15:40 → N.EDINP 15:40 → N.5E 16:39
PROVIDERS: ADMIT Internal Medicine; ATTEND Internal Medicine Cardiovascular Disease

== ENCOUNTER 2018-07-02 19:22 | Inpatient (IN) ==
[2018-07-02] MEDS ORDERED: methylPREDNISolone SOD SUC 125 MG/2 ML VIAL IV STA (20:52)
[2018-07-02] MEDS ORDERED: FUROSEMIDE 100 MG/10 ML VIAL IV STA (20:52)
[2018-07-02] MEDS ORDERED: ONDANSETRON 4 MG/2 ML VIAL IV STA (20:52)
[2018-07-02 21:00] LABS: Basophils # 0.1 10*3/uL (0.0-0.2); Basophils % 0.6 % (0.0-0.8); Eosinophils # 0.2 10*3/uL (0.0-0.87); Eosinophils % 1.7 % (0.00-10.9); Hematocrit 26.2 VOL% (42.0-52.0); Hemoglobin 8.1 GM/DL (14.0-18.0); Immature Granulocytes % 0.6 %; Immature Granulocytes Absolute 0.05 #; Lymphocytes # 2.4 10*3/uL (1.4-4.0); Lymphocytes % 26.5 % (21.2-54.2); Mean Corpuscular HGB Conc 30.9 GM/DL (32-36); Mean Corpuscular Hemoglobin 29 PG (27-34); Mean Corpuscular Volume 92.9 FL (87-102); Mean Platelet Volume 12.9 FL (9.6-12.0); Monocytes # 1.1 10*3/uL (0.11-0.8); Monocytes % 12.5 % (1.7-12.7); Neutrophils # 5.2 10*3/uL (1.4-7.4); Neutrophils % 58.1 % (38.7-73.9); Platelet Count 232 T/CUMM (130-400); Red Blood Count 2.82 MC/CUMM (3.8-5.5); Red Cell Distribution Width 16.1 % (9.3-17.3)
[2018-07-02] MEDS ORDERED: ALBUTEROL NEB SOLN 5 MG/ML 20 ML/BOTTLE RESP TX SCH (21:00)
[2018-07-02 21:05] LABS: PT Patient Result 10.7 SECS
[2018-07-02 21:13] LABS: Alanine Aminotransferase 26 U/L (16-61); Albumin 3.4 G/DL (3.4-5.0); Alkaline Phosphatase 71 U/L (45-117); Aspartate Amino Transferase 90 U/L (0-37); Bilirubin,Total < 0.39 MG/DL (0.2-1.0); Blood Urea Nitrogen 21 MG/DL (7-18); Calcium 9.1 MG/DL (8.5-10.1); Glucose 181 MG/DL (74-106); Osmolality,Calculated 277.1 MOS/KG (273-304); Potassium 3.8 MMOL/L (3.5-5.1); Sodium 135 MMOL/L (136-145)
[2018-07-02 21:46] LABS: Apearance,Urine CLEAR (Clear); Bacteria,Urine Occasional /HPF (Few); Bilirubin,Urine Negative (Negative); Blood, Urine Negative (Negative); Glucose,Urine (UA) Negative (Negative); Hyaline Casts,Urine 58 /LPF (0-3); Ketones,Urine Negative (Negative); Mucus,Urine Occasional /LPF (Occasional); Nitrite,Urine Negative (Negative); Protein,Urine Negative; RBC,Urine 1 /HPF (0-4); Squamous Epithelial Cell,Urine Occasional /HPF (0-10); Urine Color Yellow (Yellow); Urine Specific Gravity 1.011 (1.001-1.035); Urine Urobilinogen < 2.0 EU/DL (0.2-1.0); WBC,Urine 1 /HPF (0-6)
[2018-07-02] MEDS ORDERED: ASPIRIN 325 MG TABLET PO STA (22:18)
[2018-07-02] MEDS ORDERED: ENOXAPARIN 40 MG/0.4 ML SYRINGE SUBCUT STA (22:18)
[2018-07-02] MEDS ORDERED: MAGNESIUM SULF RIDER 4 GM in PREMIX 1 EACH IV PRN (22:52)
[2018-07-02] MEDS ORDERED: MAGNESIUM SULF RIDER 2 GM in PREMIX 1 EACH IV PRN (22:52)
[2018-07-02] MEDS ORDERED: ALBUTEROL 2.5 MG/3 ML NEB RESP TX PRN (22:52)
[2018-07-02] MEDS ORDERED: GLUCAGON 1 MG VIAL IM PRN (22:52)
[2018-07-02] MEDS ORDERED: DEXTROSE 50% 25 GM/50 ML SYRINGE IV PRN (22:52)
[2018-07-02] MEDS ORDERED: cephALEXin 500 MG CAPSULE PO SCH (23:41)
[2018-07-02] MEDS ORDERED: HYDROCORTISONE 25 MG SUPP RECTAL PRN (23:41)
[2018-07-02] MEDS ORDERED: ALPRAZolam 0.5 MG TABLET PO PRN (23:41)
[2018-07-03] MEDS: LEVALBUTEROL 1.25 MG/3 ML NEB RESP TX SCH ×4 (02:30→18:57)
[2018-07-03] MEDS: methylPREDNISolone SOD SUC 40 MG/1 ML VIAL IV SCH ×3 (06:28→21:15)
[2018-07-03 08:27] LABS: Basophils % 0.1 % (0.0-0.8); Hematocrit 25.1 VOL% (42.0-52.0); Hemoglobin 7.7 GM/DL (14.0-18.0); Immature Granulocytes % 0.5 %; Immature Granulocytes Absolute 0.05 #; Lymphocytes # 1.2 10*3/uL (1.4-4.0); Lymphocytes % 12.8 % (21.2-54.2); Mean Corpuscular HGB Conc 30.7 GM/DL (32-36); Mean Corpuscular Hemoglobin 29 PG (27-34); Mean Platelet Volume 12.9 FL (9.6-12.0); Monocytes # 0.3 10*3/uL (0.11-0.8); Monocytes % 2.9 % (1.7-12.7); Neutrophils # 7.8 10*3/uL (1.4-7.4); Neutrophils % 83.7 % (38.7-73.9); Platelet Count 177 T/CUMM (130-400); Red Blood Count 2.67 MC/CUMM (3.8-5.5); Red Cell Distribution Width 16.3 % (9.3-17.3); White Blood Count 9.4 T/CUMM (4-12)
[2018-07-03 08:41] LABS: Calcium 8.9 MG/DL (8.5-10.1); Osmolality,Calculated 284.8 MOS/KG (273-304); Potassium 4.5 MMOL/L (3.5-5.1)
[2018-07-03] MEDS: cephALEXin 500 MG CAPSULE PO SCH ×2 (08:48→21:04)
[2018-07-03] MEDS: MEMANTINE 5 MG TABLET PO SCH (08:48)
[2018-07-03] MEDS: VENLAFAXINE XR 75 MG CAPSULE PO SCH (08:48)
[2018-07-03] MEDS: CARVEDILOL 3.125 MG TABLET PO SCH ×2 (08:49→17:05)
[2018-07-03] MEDS: PANTOPRAZOLE 40 MG TABLET PO SCH (08:49)
[2018-07-03] MEDS: SPIRONOLACTONE 25 MG TABLET PO SCH (08:49)
[2018-07-03] MEDS: INSULIN REGULAR 100 UNIT/ML SUBCUT SCH ×4 (08:49→21:03)
[2018-07-03] MEDS: ATORVASTATIN 40 MG TABLET PO SCH (08:49)
[2018-07-03] MEDS: FUROSEMIDE 40 MG/4 ML VIAL IV SCH ×2 (08:49→16:18)
[2018-07-03] MEDS: BUDESONIDE/FORMOTEROL 160-4.5 INHALER 6 GM INH SCH ×2 (08:50→21:04)
[2018-07-03] MEDS: AMIODARONE 200 MG TABLET PO SCH (08:53)
[2018-07-03] MEDS: LEVOTHYROXINE 88 MCG TABLET PO SCH (08:53)
[2018-07-03 08:59] LABS: Anisocytosis 2+; Platelet Estimate Normal
[2018-07-03] MEDS ORDERED: SACUBITRIL/VALSARTAN 49-51 MG TABLET PO SCH (09:00)
[2018-07-03] MEDS: ASPIRIN EC 81 MG TABLET PO SCH (12:54)
[2018-07-03 14:39] LABS: Albumin 2.9 G/DL (3.4-5.0); Bilirubin,Total 0.4 MG/DL (0.2-1.0); Calcium 8.5 MG/DL (8.5-10.1); Osmolality,Calculated 284.1 MOS/KG (273-304); Potassium 3.8 MMOL/L (3.5-5.1); Total Protein 6.4 G/DL (6.4-8.3)
[2018-07-03] MEDS: MIRTAZAPINE 15 MG TABLET PO SCH (21:04)
[2018-07-03] MEDS ORDERED: ENOXAPARIN 40 MG/0.4 ML SYRINGE SUBCUT SCH (23:00)
[2018-07-04] MEDS: LEVALBUTEROL 1.25 MG/3 ML NEB RESP TX SCH ×2 (01:23→07:48)
[2018-07-04 04:05] LABS: Basophils % 0.1 % (0.0-0.8); Hematocrit 23.9 VOL% (42.0-52.0); Hemoglobin 7.2 GM/DL (14.0-18.0); Immature Granulocytes % 0.7 %; Immature Granulocytes Absolute 0.12 #; Lymphocytes # 1.5 10*3/uL (1.4-4.0); Lymphocytes % 9.6 % (21.2-54.2); Mean Corpuscular HGB Conc 30.1 GM/DL (32-36); Mean Corpuscular Hemoglobin 29 PG (27-34); Mean Corpuscular Volume 95.2 FL (87-102); Mean Platelet Volume 12.8 FL (9.6-12.0); Monocytes # 1.4 10*3/uL (0.11-0.8); Monocytes % 8.9 % (1.7-12.7); NRBC # 0.06 10*3/uL; Neutrophils # 12.9 10*3/uL (1.4-7.4); Neutrophils % 80.7 % (38.7-73.9); Platelet Count 209 T/CUMM (130-400); Red Blood Count 2.51 MC/CUMM (3.8-5.5); Red Cell Distribution Width 16.6 % (9.3-17.3)
[2018-07-04 04:19] LABS: Calcium 8.4 MG/DL (8.5-10.1); Osmolality,Calculated 278.4 MOS/KG (273-304); Potassium 4.3 MMOL/L (3.5-5.1)
[2018-07-04] MEDS: methylPREDNISolone SOD SUC 40 MG/1 ML VIAL IV SCH ×3 (07:06→21:38)
[2018-07-04] MEDS: BUDESONIDE/FORMOTEROL 160-4.5 INHALER 6 GM INH SCH (10:24)
[2018-07-04] MEDS: SPIRONOLACTONE 25 MG TABLET PO SCH (10:24)
[2018-07-04] MEDS: FUROSEMIDE 40 MG/4 ML VIAL IV SCH (10:24)
[2018-07-04] MEDS: MEMANTINE 5 MG TABLET PO SCH (10:24)
[2018-07-04] MEDS: VENLAFAXINE XR 75 MG CAPSULE PO SCH (11:09)
[2018-07-04] MEDS: PANTOPRAZOLE 40 MG TABLET PO SCH (11:09)
[2018-07-04] MEDS: ATORVASTATIN 40 MG TABLET PO SCH (11:09)
[2018-07-04] MEDS: CARVEDILOL 3.125 MG TABLET PO SCH ×2 (11:09→17:29)
[2018-07-04] MEDS: INSULIN REGULAR 100 UNIT/ML SUBCUT SCH ×4 (11:09→21:30)
[2018-07-04] MEDS: AMIODARONE 200 MG TABLET PO SCH (11:09)
[2018-07-04] MEDS: ASPIRIN EC 81 MG TABLET PO SCH (11:09)
[2018-07-04] MEDS: LEVOTHYROXINE 88 MCG TABLET PO SCH (11:14)
[2018-07-04] MEDS: cephALEXin 500 MG CAPSULE PO SCH (11:20)
[2018-07-04] MEDS ORDERED: cephALEXin 500 MG CAPSULE PO SCH (11:30)
[2018-07-04] MEDS ORDERED: LEVALBUTEROL 1.25 MG/3 ML NEB RESP TX PRN (11:35)
[2018-07-04] MEDS ORDERED: LEVALBUTEROL 0.63 MG/3 ML NEB RESP TX PRN (11:42)
[2018-07-04] MEDS ORDERED: AMIODARONE 450 MG/9 ML VIAL IV ONE (12:09)
[2018-07-04] MEDS ORDERED: AMIODARONE INJ 450 MG in DEXTROSE 5% 241 ML IV SCH ×2 (12:30→18:15)
[2018-07-04] MEDS: cefTRIAXone 1,000 MG in SYRINGE 1 EACH IV SCH (14:43)
[2018-07-04] MEDS ORDERED: BUDESONIDE 0.5 MG/2 ML NEB RESP TX SCH (19:00)
[2018-07-04] MEDS: MIRTAZAPINE 15 MG TABLET PO SCH (21:38)
[2018-07-05] MEDS ORDERED: SODIUM CHLORIDE 0.9% 250 ML IV ONE (00:38)
[2018-07-05 04:29] LABS: Basophils % 0.1 % (0.0-0.8); Hematocrit 32.1 VOL% (42.0-52.0); Immature Granulocytes % 0.7 %; Immature Granulocytes Absolute 0.12 #; Lymphocytes % 5.9 % (21.2-54.2); Mean Corpuscular HGB Conc 31.2 GM/DL (32-36); Mean Corpuscular Hemoglobin 29 PG (27-34); Mean Corpuscular Volume 91.7 FL (87-102); Mean Platelet Volume 13.4 FL (9.6-12.0); Monocytes # 2.1 10*3/uL (0.11-0.8); Monocytes % 12.5 % (1.7-12.7); NRBC # 0.14 10*3/uL; Neutrophils # 13.4 10*3/uL (1.4-7.4); Neutrophils % 80.8 % (38.7-73.9); Red Cell Distribution Width 16.2 % (9.3-17.3); White Blood Count 16.6 T/CUMM (4-12)
[2018-07-05 04:49] LABS: Platelet Count 126 T/CUMM (130-400)
[2018-07-05 04:59] LABS: Calcium 8.5 MG/DL (8.5-10.1); Osmolality,Calculated 281.4 MOS/KG (273-304)
[2018-07-05] MEDS: methylPREDNISolone SOD SUC 40 MG/1 ML VIAL IV SCH ×3 (06:13→21:32)
[2018-07-05] MEDS ORDERED: NOREPINEPHRINE 8 MG in SODIUM CHLORIDE 0.9% 242 ML IV PRN (07:30)
[2018-07-05] MEDS ORDERED: SODIUM CHLORIDE 0.9% 1,000 ML IV SCH (08:30)
[2018-07-05] MEDS: INSULIN REGULAR 100 UNIT/ML SUBCUT SCH ×4 (09:11→21:32)
[2018-07-05] MEDS: CARVEDILOL 3.125 MG TABLET PO SCH (09:25)
[2018-07-05] MEDS: ASPIRIN EC 81 MG TABLET PO SCH (10:11)
[2018-07-05] MEDS: LEVOTHYROXINE 88 MCG TABLET PO SCH (10:11)
[2018-07-05] MEDS: VENLAFAXINE XR 75 MG CAPSULE PO SCH (10:14)
[2018-07-05] MEDS: AMIODARONE 200 MG TABLET PO SCH ×2 (10:14→21:32)
[2018-07-05] MEDS: PANTOPRAZOLE 40 MG TABLET PO SCH (10:14)
[2018-07-05] MEDS: ATORVASTATIN 40 MG TABLET PO SCH (10:15)
[2018-07-05 13:18] LABS: Apearance,Urine Slightly Hazy (Clear); Bilirubin,Urine Negative (Negative); Blood, Urine Large mg/dL (Negative); Glucose,Urine (UA) Negative (Negative); Hyaline Casts,Urine 5 /LPF (0-3); Ketones,Urine Negative (Negative); Mucus,Urine Occasional /LPF (Occasional); Nitrite,Urine Negative (Negative); Protein,Urine Negative; RBC,Urine 36 /HPF (0-4); Squamous Epithelial Cell,Urine Occasional /HPF (0-10); Urine Color Yellow (Yellow); Urine Specific Gravity 1.016 (1.001-1.035); Urine Urobilinogen < 2.0 EU/DL (0.2-1.0); WBC,Urine 4 /HPF (0-6)
[2018-07-05] MEDS: cefTRIAXone 1,000 MG in SYRINGE 1 EACH IV SCH (13:42)
[2018-07-05] MEDS: MIRTAZAPINE 15 MG TABLET PO SCH (21:31)
[2018-07-06 04:13] LABS: Basophils % 0.1 % (0.0-0.8); Hematocrit 30.6 VOL% (42.0-52.0); Hemoglobin 9.6 GM/DL (14.0-18.0); Immature Granulocytes % 1.1 %; Immature Granulocytes Absolute 0.16 #; Lymphocytes # 0.6 10*3/uL (1.4-4.0); Lymphocytes % 3.8 % (21.2-54.2); Mean Corpuscular HGB Conc 31.4 GM/DL (32-36); Mean Corpuscular Hemoglobin 29 PG (27-34); Mean Corpuscular Volume 91.1 FL (87-102); Monocytes # 1.1 10*3/uL (0.11-0.8); Monocytes % 7.1 % (1.7-12.7); NRBC # 0.44 10*3/uL; Neutrophils # 13.1 10*3/uL (1.4-7.4); Neutrophils % 87.9 % (38.7-73.9); Platelet Count 68 T/CUMM (130-400); Red Blood Count 3.36 MC/CUMM (3.8-5.5); Red Cell Distribution Width 16.1 % (9.3-17.3); White Blood Count 14.9 T/CUMM (4-12)
[2018-07-06 04:28] LABS: Calcium 7.8 MG/DL (8.5-10.1); Osmolality,Calculated 285.9 MOS/KG (273-304); Potassium 5.4 MMOL/L (3.5-5.1)
[2018-07-06] MEDS: methylPREDNISolone SOD SUC 40 MG/1 ML VIAL IV SCH (05:19)
[2018-07-06 06:47] LABS: Band Neutrophils 10 % (0-10); Lymphocytes 1 % (20-55); Nucleated Red Blood Cells 2 (0-5); Segmented Neutrophils 89 % (50-85); Total Cells Counted 100
[2018-07-06 06:48] LABS: Acanthocytes Few; Giant Platelets Few; Hypochromasia 1+; Ovalocytes Few; Platelet Estimate Adequate; Polychromasia Slight
[2018-07-06] MEDS: INSULIN REGULAR 100 UNIT/ML SUBCUT SCH (09:06)
[2018-07-06] MEDS ORDERED: CARVEDILOL 3.125 MG TABLET PO SCH (09:30)
[2018-07-06] MEDS: ONDANSETRON 4 MG/2 ML VIAL IV PRN ×3 (09:44→20:39)
[2018-07-06] MEDS: ATORVASTATIN 40 MG TABLET PO SCH (09:45)
[2018-07-06] MEDS: AMIODARONE 200 MG TABLET PO SCH ×2 (09:45→20:45)
[2018-07-06] MEDS: ASPIRIN EC 81 MG TABLET PO SCH (09:45)
[2018-07-06] MEDS: PANTOPRAZOLE 40 MG TABLET PO SCH (09:45)
[2018-07-06] MEDS: LEVOTHYROXINE 88 MCG TABLET PO SCH (09:45)
[2018-07-06] MEDS ORDERED: LORazepam 2 MG/1 ML VIAL IV PRN (10:01)
[2018-07-06] MEDS ORDERED: FUROSEMIDE 40 MG TABLET PO SCH (10:30)
[2018-07-07] MEDS: MORPHINE 4 MG/1 ML VIAL IV PRN ×2 (09:29→22:17)
[2018-07-07] MEDS: LEVOTHYROXINE 88 MCG TABLET PO SCH (09:29)
[2018-07-07] MEDS: ASPIRIN EC 81 MG TABLET PO SCH (09:29)
[2018-07-07] MEDS: AMIODARONE 200 MG TABLET PO SCH ×2 (09:29→21:12)
[2018-07-08 01:16] VITALS: BP 122/60
== END 2018-07-08 01:59 | disposition expired ==
LOC: EDBD → EDUNIT# → N.ED 19:22 → N.EDINP 22:53 → SUATTDRO 22:53 → N.CC 23:18 → N.TELES 07-03 21:47 → N.CC 07-04 08:51 → N.TELES 07-06 13:44
PROVIDERS: ADMIT Internal Medicine; ATTEND Internal Medicine